=== PATIENT | female | born 1970 | race Caucasian/White ===

== ENCOUNTER → 2017-03-23 08:48 | Outpatient (CLI) | payer BC, SELFPAY ==
--- NOTE | 2017-03-23 08:51 | HPBI_ITS ---
MAMMOGRAPHY - BILATERAL SCREENING REASON FOR EXAM: Female, 46 years old. Routine annual screening examination. PERTINENT HISTORY: Non-contributory. TECHNIQUE: Digital bilateral breast sandro (3D mammographic acquisition) in the CC and MLO projections. 2-D mediolateral oblique (MLO) and craniocaudad (CC) views of both breasts were obtained. CAD: Full Field Digital Mammography with Computer Added Detection was performed. COMPARISON: Comparison is made with prior outside examination dated April 13, 2014. FINDINGS: Breast Composition: There are scattered areas of fibroglandular density. There are no dominant masses or suspicious calcifications. Stable well-defined 1.3 cm nodular density in the axillary region of the right breast. This most likely represents a small lymph node. No other significant abnormalities are identified. There has been no significant change since the prior study. HPBI/SCREENING MAMM (CAD), BILAT IMPRESSION: Stable bilateral screening mammogram. Yearly follow-up mammogram recommended. (A) ASSESSMENT CATEGORY: BIRADS Category 2: Benign. A letter regarding these results will be sent to the patient by the facility within 30 days. Approximately 10% of breast cancers are not detected by mammography. A normal mammogram should not delay biopsy of a clinically suspicious abnormality. [id number] Electronically Signed: Cleveland Cruz MD at 11:19 EST Tel [phone], Service support ,
== END ==
PROVIDERS: Family Provider Family Medicine; PCP Family Medicine; Visit Provider Obstetrics & Gynecology
DX: Z12.31 Encounter for screening mammogram for malignant neoplasm of breast (principal)
CPT/HCPCS: 77063; 77067

== ENCOUNTER → 2019-03-20 | Outpatient (CLI) | payer BC, SELFPAY ==
--- NOTE | 2019-03-20 08:21 | BI_ITS ---
MAMMOGRAPHY - BILATERAL SCREENING REASON FOR EXAM: Female, 48 years old. Routine annual screening examination. PERTINENT HISTORY: Non-contributory. TECHNIQUE: Digital bilateral breast patric (3D mammographic acquisition) in the CC and MLO projections. 2-D mediolateral oblique (MLO) and craniocaudad (CC) views of both breasts were obtained. CAD: Full Field Digital Mammography with Computer Added Detection was performed. COMPARISON: Comparison is made with prior examination dated March 23, 2017. FINDINGS: Breast Composition: There are scattered areas of fibroglandular density. There are no dominant masses or suspicious calcifications. Stable well-defined 1.3 cm nodular density in the axillary region of the right breast. This most likely represents a small benign-appearing lymph node. No other significant abnormalities are identified. There has been no significant change since the prior study. BI/SCREEN MAMM (CAD) W/PATRIC BILAT IMPRESSION: Stable bilateral screening mammogram. Yearly follow-up mammogram recommended. (A) ASSESSMENT CATEGORY: BIRADS Category 2: Benign. A letter regarding these results will be sent to the patient by the facility within 30 days. Approximately 10% of breast cancers are not detected by mammography. A normal mammogram should not delay biopsy of a clinically suspicious abnormality. [id number] Electronically Signed: Cleveland Cruz, at 14:47 EST , Service support ,
== END | disposition home or self-care (01) ==
LOC: OPBI 08:21
PROVIDERS: PCP Family Medicine; Referring Provider Obstetrics & Gynecology; Visit Provider Obstetrics & Gynecology
DX: Z12.31 Encounter for screening mammogram for malignant neoplasm of breast (principal)
CPT/HCPCS: 77063; 77067

== ENCOUNTER → 2020-04-02 14:45 | Outpatient (CLI) | payer BC, SELFPAY ==
[2019-07-27 08:29] VITALS: BMI 34.2
[2020-04-02 15:03] LABS: Absolute Lymphocyte Count 2.14 X10^3/uL (0.83-4.51); Absolute Neutrophil Count 3.5 X10^3/uL (2.0-7.7); Basophil# 0.05 X10^3/uL; Basophil% 0.8 % (0-1); Eosinophil# 0.13 X10^3/uL; Eosinophils% 2.1 % (0-5); Hematocrit 39.8 % (37-47); Hemoglobin 12.6 g/dL (12.0-15.0); Lymphocyte # 2.14 X10^3/ul (4.0); Lymphocyte % 34.2 % (19-41); Mean Corp Hgb Conc 31.7 g/dL (32-36); Mean Corpuscular Hgb 27.3 pg (27.0-32.0); Mean Corpuscular Volume 86.3 fL (81-99); Mean Platelet Vol. 11.6 fl (6.2-12.0); Monocyte# 0.43 X10^3/uL; Monocyte% 6.9 % (0-10); NRBC Flagged by Analyzer 0 % (0-5); Neutrophil # 3.48 X10^3/uL (2.7-7.7); Neutrophil % 55.7 % (47-70); Platelet Count 256 K/mm3 (150-450); RBC Distribution Width CV 13.2 % (11.6-14.6); RBC Distribution Width SD 41.6 fl (35.1-43.9); Red Blood Count 4.61 M/mm3 (4.2-5.4); White Blood Count 6.3 K/mm3 (4.4-11.0)
[2020-04-02 15:26] LABS: Thyroid Stim Hormone (TSH) 1.53 uIU/mL (0.358-3.74)
== END ==
PROVIDERS: PCP Family Medicine; Referring Provider Obstetrics & Gynecology; Visit Provider Obstetrics & Gynecology
DX: N92.0 Excessive and frequent menstruation with regular cycle (principal)
CPT/HCPCS: 36415; 84443; 85025

== ENCOUNTER → 2020-04-05 14:32 | Outpatient (CLI) | payer BC, SELFPAY ==
[2019-07-27 08:29] VITALS: BMI 34.2
--- NOTE | 2020-04-05 14:44 | US_ITS ---
STUDY: ULTRASOUND OF THE FEMALE PELVIS - COMPLETE REASON FOR EXAM: Female, 49 years old. menorrhagia LMP: TECHNIQUE: Transabdominal and Transvaginal TECHNICAL QUALITY: Adequate. COMPARISON: None. FINDINGS: The uterus is retroflexed and is in a midline position. The uterus measures 7.4 x 4.8 x 6.9 cm. Normal uterine cervix. The endometrium measures 9 mm in thickness, and is hyperechoic. There is no demonstrated endometrial mass. There is no demonstrated myometrial mass. I.U.D. - The patient does not have an I.U.D. The right ovary is visualized. The right ovary measures 3.6 x 3.2 x 2.5 cm. 3.4 cm corpus luteum cyst of the right ovary. There is no visualized right adnexal mass or complex lesion. There is normal arterial and normal venous vascularity. The left ovary is visualized. The left ovary measures 3.5 x 1.7 x 1.6 cm. There is no left ovarian cyst or ovarian mass. There is no visualized left adnexal mass or complex lesion. There is normal arterial and normal venous vascularity. There is no fluid in the cul-de-sac. The pre void volume of the bladder was ml. The post void volume of the bladder was ml. Polycystic ovary disease: No. US/Pelvic (Non ) IMPRESSION: 3.4 cm corpus luteum cyst of the right ovary. Electronically Signed: Barrington Dee MD at 8:42 EST Tel , Service support ,
--- NOTE | 2020-04-05 14:44 | US_ITS ---
STUDY: ULTRASOUND OF THE FEMALE PELVIS - COMPLETE REASON FOR EXAM: Female, 49 years old. menorrhagia LMP: TECHNIQUE: Transabdominal and Transvaginal TECHNICAL QUALITY: Adequate. COMPARISON: None. FINDINGS: The uterus is retroflexed and is in a midline position. The uterus measures 7.4 x 4.8 x 6.9 cm. Normal uterine cervix. The endometrium measures 9 mm in thickness, and is hyperechoic. There is no demonstrated endometrial mass. There is no demonstrated myometrial mass. I.U.D. - The patient does not have an I.U.D. The right ovary is visualized. The right ovary measures 3.6 x 3.2 x 2.5 cm. 3.4 cm corpus luteum cyst of the right ovary. There is no visualized right adnexal mass or complex lesion. There is normal arterial and normal venous vascularity. The left ovary is visualized. The left ovary measures 3.5 x 1.7 x 1.6 cm. There is no left ovarian cyst or ovarian mass. There is no visualized left adnexal mass or complex lesion. There is normal arterial and normal venous vascularity. There is no fluid in the cul-de-sac. The pre void volume of the bladder was ml. The post void volume of the bladder was ml. Polycystic ovary disease: No. US/Transvaginal Non- IMPRESSION: 3.4 cm corpus luteum cyst of the right ovary. Electronically Signed: Barrington Dee MD at 8:42 EST Tel , Service support ,
== END ==
PROVIDERS: PCP Family Medicine; Referring Provider Obstetrics & Gynecology; Visit Provider Obstetrics & Gynecology
DX: N92.0 Excessive and frequent menstruation with regular cycle (principal)
CPT/HCPCS: 76830; 76856

== ENCOUNTER 2020-05-14 05:55 | Day surgery (SDC) | payer BC, SELFPAY ==
[2020-04-11 11:46] VITALS: BMI 35.9
[2020-05-01 15:04] VITALS: BMI 36.3
--- NOTE | 2020-05-13 10:40 | EKG12_ITS ---
Test Reason : PRE OP Blood Pressure : / mmHG Vent. Rate : 069 BPM Atrial Rate : 069 BPM P-R Int : 156 ms QRS Dur : 082 ms QT Int : 336 ms P-R-T Axes : 039 027 026 degrees QTc Int : 360 ms Normal sinus rhythm Normal ECG Confirmed by NELLY HOLGUIN MD ([id number]), movie editor GERTRUDE ARRIAZA ([id number]) on 05/15/2020 7:36:33 AM Referred By: Yumiko Funk Confirmed By:NELLY HOLGUIN MD
[2020-05-13 11:38] LABS: Hematocrit 41.1 % (37-47); Hemoglobin 12.7 g/dL (12.0-15.0); Mean Corp Hgb Conc 30.9 g/dL (32-36); Mean Corpuscular Hgb 26.6 pg (27.0-32.0); Mean Platelet Vol. 12.5 fl (6.2-12.0); Platelet Count 259 K/mm3 (150-450); RBC Distribution Width CV 14.1 % (11.6-14.6); RBC Distribution Width SD 44.8 fl (35.1-43.9); Red Blood Count 4.78 M/mm3 (4.2-5.4); White Blood Count 4.2 K/mm3 (4.4-11.0)
[2020-05-14] VITALS (7 sets, daily range): BP systolic 119–142; BP diastolic 75–84; PULSE 69–84; RESP 16; TEMP 36.6–36.8; O2SAT 78–98; BMI 35.6
--- NOTE | 2020-05-14 | UTC_PTH ---
PATIENT: SHAYNA SYLVESTER LOC: [facility] U#:[id number] AGE/SX: 50/F ROOM: RE05/14/[address]: Dr. Yumiko Funk MD : 1970 BED: DIS: 05/14/2020 SPEC #: [id number] RECD: 05/14/20 08:00 STATUS: NURIS REOtoniel #: [id number] PAZ: 05/14/20 00:[address]: Yumiko Funk DEPT: SURGICAL PATHOLOGY RECD BY: Daly Diaz ENTERED: 05/14/20 08:37 SP TYPE: WA CUR OTHR DR: Dr. Charanjit Gonzalez, DO Tissues: A - Uterine cervix, NOS B - Uterine cervix, NOS Procedures: Frozen Section (charge) Frozen Section Add'l ([facility]) Surgery Specimen Level IV HEADER OPERATION: Hysteroscopy, D & C, operative resection polypectomy, Symphion PRE-OP DIAGNOSIS: Menorrhagia with regular cycle TISSUE SUBMITTED: A - Uterine curettings, FS at 0742, B - Uterine curettings FROZEN SECTION DIAGNOSIS A. Uterine curettings: Consistent with exogenous hormone effects. No evidence of endometrial hyperplasia. SJ:carlin 05/14/2020 MICROSCOPIC DIAGNOSIS A. Uterine curettings: Consistent with exogenous hormone effect with focal minimal area of secretory endometrium. Fragments of benign ecto- and endocervical mucosa with chronic inflammation. No evidence of endometrial hyperplasia. B. Uterine curettings: Consistent with exogenous hormone effect with focal minimal area of secretory endometrium. Fragments of myometrium with focal adenomyosis. Negative for endometrial hyperplasia. JITENDRA:carlin 05/15/2020 COMMENT Case has been reviewed in consultation with Dr. Carlisle who concurs with the above diagnosis. IDC:AM MICROSCOPIC DESCRIPTION Slides are reviewed. GROSS DESCRIPTION A - Received fresh for frozen section diagnosis labeled with the patient's name is a specimen designated uterine curettings. The specimen consists of multiple fragments of hemorrhagic soft tissue mixed with blood clots. The hemorrhagic soft tissue measures 6 x 2 x 1 cm and blood clot measures 4 x 3 x 1 cm. The hemorrhagic soft tissue is submitted for frozen section diagnosis in two cassettes. The rest of the specimen is submitted in two more cassettes. / JITENDRA:carlin 05/14/20 B - Received in fixative is one container labeled with the patient's name and designated uterine curettings. The specimen consists of multiple irregular fragments of villeda soft tissue mixed with a few fragments of blood clot that in aggregate measure 7.5 x 3 x 1 cm. The entire specimen is submitted in nine cassettes. Cassette 9 contains the blood clots. / JITENDRA:carlin 05/14/20 TC:5 CPT: 20766 x2, 13991, 77515
[2020-05-14] MEDS: Lactated Ringers 1,000 ML 125 ML IV (06:37)
[2020-05-14 06:41] LABS: Internal QC Validated? YES +Cl - CLEAR BKGD; Pregnancy, Urine Negative Negative
[2020-05-14] MEDS: Lidocaine 1% (20 ml mdv) 20 ML Vial (07:42)
[2020-05-14] MEDS: FERRIC SUBSULFATE 8 GM SOLN (08:23)
--- NOTE | 2020-05-14 08:32 | HP.PCM_ITS ---
- Problem List (1) Menorrhagia with regular cycle Status: Acute Comment: discussed medical vs surgical mangement, failed aygestin. plan margaret ablation. 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 Yumiko Funk MD) adopted: No household members: family housing: house number of children: 4 current occupational status: employed pets and animals: Yes Smoking Status: Never smoker second hand exposure: No alcohol intake: never substance use type: does not use seatbelt use: always do you feel safe at home: Yes additional social history: - Khanh COLUNGA preop D&C Margaret Ablation: Details: SHAYNA SYLVESTER is a 49 year old who presents for preop visit prior to her surgery. she is having a d and c hysterosocpy ablation Pregancy History 4 Elective abortions Hx Para 4 Spontaneous abortions Hx # Term Pregnancies Ectopic pregnancies Hx # Pregnancies Multiple births # of living children 4 Past Pregnancies Del. Date Name GA/Weeks Outcome Route Bth Weight Gen Labor Lgth Anesthesia Del Locatn Provider FOB Unknown 1997- Efren Unknown 1999-- Zack Unknown 2002- Rajeev Unknown 2006- Corina ROS Const Constitutional: Denies fatigue, fever(s), headache(s), increased appetite, poor appetite, weight gain or weight loss Cardio Card: Denies chest pain Resp Resp: Denies cough or dyspnea GI GI: Reports as per HPI; denies abdominal pain, constipation, nausea or vomiting : Reports as per HPI; denies difficulty urinating, painful urination, nipple discharge, urinary frequency, urinary incontinence, urinary hesitancy, urinary urgency, vaginal discharge, vaginal dryness, vaginal odor or vaginal itching Skin Skin/Breast: Denies change in hair, breast lump, breast pain, breast skin changes or nipple discharge Exam Const General: cooperative, healthy appearing, comfortable, no acute distress, well developed Nutritional Appearance: average body habitus Orientation: alert HENMT Head: normal to inspection, normocephalic Neck Neck: normal visual inspection, trachea midline Thyroid: thyroid normal Resp Effort & Inspection: normal respiratory effort GI Inspection: normal to inspection, non-distended Palpation: soft, no hepatosplenomegaly General: bladder normal to palpation External Female Exam: normal external appearance, normal appearance of the urethra Urethra: normal appearance of the urethra, normal palpation, no discharge Speculum Exam - Vagina: normal appearance of the vagina, normal vaginal discharge Speculum Exam - Cervix: normal appearance of the cervix, nontender Bimanual Exam- Vagina & Uterus: normal bimanual exam, uterine size normal, bladder normal to palpation, uterine shape normal, No cervical tenderness, uterine mobility normal, uterine consistency normal, normal cervical palpation, uterus non-tender Bimanual Exam- Adnexa, other: normal adnexae, adnexae mobile, no adnexal masses, pelvic support normal Pelvic Support: normal Skin General: no rashes or lesions noted Assessment & Plan Problems 1. Menorrhagia with regular cycle N92.0 discussed medical vs surgical mangement, failed aygestin. plan margaret ablation. Plan After discussing the patient's diagnosis and treatment plan options, patient wishes to proceed with surgical management. I have discussed with the patient the risks, benefits, and alternatives of the procedure which include but are not limited to risks of anesthesia, bleeding, infection, possible damage to bowel, bladder, or surrounding vasculature which could lead to additional surgery to evaluate any complications. Patient agrees to procedure and wishes to proceed. ACOG/uptodate references given for additional information regarding procedure. Coding Level of Care Code No Charge Diagnoses Menorrhagia with regular cycle N92.0 UPDATE- I have seen the patient and performed any clinically relevant updates to the history and physical exam. Yumiko Funk MD
--- NOTE | 2020-05-14 08:32 | PCM.OPRPT ---
Problem List (1) Menorrhagia with regular cycle Status: Acute Comment: discussed medical vs surgical mangement, failed aygestin. plan diane ablation. (2) Mixed incontinence Status: Acute Comment: july consult, possible combo case Report of Operation Date of Procedure: 05/14/20 Pre-Operative Diagnosis: AUB Post-Operative Diagnosis: same Surgery/Procedure Performed:: d and c hysteroscopy symphion resection and minveran ablation Description of Surgical Findings:: thickened polypoid lining with multiple polyps and posisble degenerating fibroids Type of Anesthesia:: MAC/Supplemental/Local Special Medications: none Specimen's removed: emc Drains: garcia Estimated Blood Loss (mL): 50 Fluids Replaced: crystalloid Description of Procedure: Patient was prepped and draped in a normal sterile fashion under MAC anesthesia. A weighted speculum was placed in the vagina and the anterior lip of the cervix was grasped with a single-tooth tenaculum. A paracervical block was placed with 1% lidocaine. Cervix was progressively dilated to allow passage of a 5 mm hysteroscope. The lining was fully visualized and noted to have an irregular and thickened polypoid lining that had multiple calcifications and therefore the symphion device was utilized to provide direct resection of all the tissue and a frozen section was sent for evaluation which showed no hyperplasia or cancerous abnormalities.. Uterine sounded to 9 cm. Using the symphion device, the thickened lining and polyps and possible fibroids were progressively removed without complications. Direct visual curettage was performed using the device , and all specimens were sent to pathology. Since the pathology was within normal limits the decision to proceed with the Diane ablation since the cavity lining had been normalized structurally the ablation and passed the cavity integrity test and complete 2-minute burn was completed without complication. All instruments were removed from the vagina and excellent hemostasis was noted. Patient was awoken and taken to recovery in stable condition. Grafts/Implants Used: none - Complications none - Admit VTE Documentation VTE Present on Admission: No VTE Mechan Device Prophylaxis: SCD's Multi Select Codes - Urinary/Genital Urinary/Genital CPT Codes: 23619 Diane/Novasure, 46234 Hysteroscopy,EMC, Polypectomy
--- NOTE | 2020-05-14 08:33 | DCINST_ITS ---
Discharge Diet: No Restrictions Discharge Activity: Return to Normal Activity, May Shower, May Take a Tub Bath Allergies/Adverse Reactions: Allergies No Known Allergies Allergy (Verified 05/08/20 10:42) Medications to take at Discharge norethindrone acetate 5 mg tablet 5 mg PO .COMPLEX #45 tablet 04/23/20 Naproxen [Naprosyn] 250 - 500 mg PO Q8H PRN PRN #30 tab 05/14/20 The following prescriptions were given: Naproxen [Naprosyn] 250 - 500 mg PO Q8H PRN PRN #30 tab PRN Reason: MILD PAIN Transmission Status: Pending to [facility] Orders to be completed after discharge: 12 Lead EKG [[facility]] Time Frame: 1 Week, Location: None Selected Primary Care Physician: Charanjit Gonzalez DO [Primary Care Provider] - Test Results: Test results from this visit will be discussed in further detail at your follow- up appointment, if applicable. Please Follow Up With: Yumiko Funk MD - [phone]
== END 2020-05-14 10:01 | disposition home or self-care (01) ==
LOC: SDC 05:56 → AC 05:56
PROVIDERS: Anesthesiology; PCP Family Medicine; Referring Provider Obstetrics & Gynecology; Visit Provider Obstetrics & Gynecology
PROC: 0U5B8ZZ Destruction of Endometrium, Via Natural or Artificial Opening Endoscopic (ICD-10-PCS; CPT 58558; principal; 2020-05-14 07:15)
DX: N92.0 Excessive and frequent menstruation with regular cycle (principal); N39.46 Mixed incontinence; Z20.822 Contact with and (suspected) exposure to COVID-19
CPT/HCPCS: 00952; 58563; 36415; 81025; 85027; 86850; 86900; 86901; 87426; 88305; 88331; 88332; 93005; C9803; J7120

== ENCOUNTER 2021-02-18 13:57 | Outpatient (CLI) | payer BC, SELFPAY ==
[2021-02-18 15:09] LABS: Absolute Lymphocyte Count 1.85 X10^3/uL (0.83-4.51); Absolute Neutrophil Count 3.4 X10^3/uL (2.0-7.7); Basophil# 0.03 X10^3/uL; Basophil% 0.5 % (0-1); Eosinophil# 0.14 X10^3/uL; Eosinophils% 2.4 % (0-5); Hematocrit 42.6 % (37-47); Hemoglobin 13.9 g/dL (12.0-15.0); Lymphocyte # 1.85 X10^3/ul (0.83-4.51); Lymphocyte % 31.2 % (19-41); Mean Corp Hgb Conc 32.6 g/dL (32-36); Mean Corpuscular Hgb 30.3 pg (27.0-32.0); Mean Platelet Vol. 11.9 fl (6.2-12.0); Monocyte% 8.4 % (0-10); NRBC Flagged by Analyzer 0 % (0-5); Neutrophil # 3.39 X10^3/uL (2.7-7.7); Neutrophil % 57.2 % (47-70); Platelet Count 223 K/mm3 (150-450); RBC Distribution Width CV 13.2 % (11.6-14.6); RBC Distribution Width SD 44.8 fl (35.1-43.9); Red Blood Count 4.58 M/mm3 (4.2-5.4); White Blood Count 5.9 K/mm3 (4.4-11.0)
[2021-02-18 15:27] LABS: ALB/GLOB Ratio 0.8 RATIO (0.9-2.4); AST(SGOT) 20 U/L (15-37); Alanine Aminotransfer ALT/SGPT 31 U/L (13-56); Albumin, Serum 3.5 g/dL (3.2-5.0); Alkaline Phosphatase 62 U/L (45-117); Anion Gap 9 (5-15); BUN 14 mg/dL (7-18); BUN/Creat Ratio 18.1 RATIO (10-20); Calcium,Total 9.1 mg/dL (8.5-10.1); Chloride 102 mmol/L (98-107); Cholesterol 245 mg/dL (200); Creatinine, Serum 0.77 mg/dL (0.55-1.02); EST Glomerular Filtration Rate 84 mL/min (>60); Est Glom Filt Rate - Afr Amer 102 mL/min (>60); Globulin 4.2 g/dL (2.2-4.2); Glucose 108 mg/dL (74-106); High Density Lipoprotein 54 mg/dL; Potassium 3.6 mmol/L (3.5-5.1); Protein, Total 7.7 g/dL (6.4-8.2); Sodium Level 139 mmol/L (136-145); Triglycerides 313 mg/dL; Very Low Density Lipoprotein 63 mg/dL (5-40)
== END 2021-02-18 23:59 | disposition short-term general hospital (02) ==
LOC: BIMLAB 13:58
PROVIDERS: PCP Family Medicine; Visit Provider Family Medicine
DX: I10 Essential (primary) hypertension (principal); Z80.0 Family history of malignant neoplasm of digestive organs
CPT/HCPCS: 36415; 80053; 80061; 85025

== ENCOUNTER 2021-04-08 13:20 | Outpatient (CLI) | payer BC, SELFPAY ==
[2021-04-11 18:55] LABS: HPV APTIMA, High Risk Negative (Negative)
== END 2021-04-08 23:59 | disposition home or self-care (01) ==
LOC: LABSPEC 04-23 13:20
PROVIDERS: PCP Family Medicine; Visit Provider Nurse Practitioner Women's Health
DX: Z12.4 Encounter for screening for malignant neoplasm of cervix (principal)
CPT/HCPCS: 87624; 88175; G0145

== ENCOUNTER 2021-05-14 07:39 | Outpatient (CLI) | payer BC, SELFPAY ==
--- NOTE | 2021-05-14 07:41 | BI_ITS ---
MAMMOGRAPHY - BILATERAL SCREENING REASON FOR EXAM: Female, 51 years old. Routine annual screening examination. PERTINENT HISTORY: Non-contributory. TECHNIQUE: Digital bilateral breast patric (3D mammographic acquisition) in the CC and MLO projections. 2-D mediolateral oblique (MLO) and craniocaudad (CC) views of both breasts were obtained. CAD: Full Field Digital Mammography with Computer Added Detection was performed. COMPARISON: Comparison is made with prior study dated 03/20/2019 and 03/23/2017. FINDINGS: Breast Composition: There are scattered areas of fibroglandular density. There are no dominant masses or suspicious calcifications. Stable benign-appearing bilateral axillary lymph nodes. No other significant abnormalities are identified. There has been no significant change since the prior study. BI/SCRN MAMM (CAD)W/PATRIC BILAT IMPRESSION: Stable bilateral screening mammogram. Yearly follow-up mammogram recommended. (A) ASSESSMENT CATEGORY: BIRADS Category 2: Benign. A letter regarding these results will be sent to the patient by the facility within 30 days. Approximately 10% of breast cancers are not detected by mammography. A normal mammogram should not delay biopsy of a clinically suspicious abnormality. [id number] Electronically Signed: Cleveland Cruz MD at 8:33 EDT ,
== END 2021-05-14 23:59 | disposition home or self-care (01) ==
LOC: OPBI 07:40
PROVIDERS: PCP Family Medicine; Visit Provider Nurse Practitioner Women's Health
DX: Z12.31 Encounter for screening mammogram for malignant neoplasm of breast (principal)
CPT/HCPCS: 77063; 77067

== ENCOUNTER 2021-06-17 10:50 | Day surgery (SDC) | payer BC, SELFPAY ==
[2021-06-17] VITALS (7 sets, daily range): BP systolic 80–119; BP diastolic 39–82; PULSE 61–72; RESP 16; TEMP 36.1–37.1; O2SAT 98–100; BMI 33.3
[2021-06-17] MEDS: Lactated Ringers 1,000 ML 15 ML IV (11:24)
--- NOTE | 2021-06-17 12:00 | COLBX_PTH ---
PATIENT: SHAYNA SYLVESTER LOC: [facility] U#:[id number] AGE/SX: 51/F ROOM: RE06/17/[address]: Dr. Bony Parker DO : 1970 BED: DIS: 06/17/2021 SPEC #: [id number] RECD: 06/17/21 16:21 STATUS: NURIS REOtoniel #: [id number] PAZ: 06/17/21 12:[address]: Bony Parker DEPT: SURGICAL PATHOLOGY RECD BY: José Miguel Clemens ENTERED: 06/18/21 09:40 SP TYPE: COLON BX OTHR DR: Dr. Charanjit Gonzalez DO Tissues: Rectum, NOS Procedures: Surgery Specimen Level IV HEADER OPERATION: Colonoscopy ? open access (MAC) PRE-OP DIAGNOSIS: Screening TISSUE SUBMITTED: Rectum biopsy MICROSCOPIC DIAGNOSIS Rectum, biopsy: No pathologic change. AM:carlin 06/19/2021 MICROSCOPIC DESCRIPTION Slides are reviewed. GROSS DESCRIPTION Received in fixative is one container labeled with the patient's name and designated rectum biopsy. The specimen consists of two irregular fragments of light villeda soft tissue that in aggregate measure 0.6 x 0.3 x 0.1 cm. The specimen is totally submitted in one cassette. / SJ:rg 06/18/2021 TC:5 CPT: 85614
--- NOTE | 2021-06-17 12:10 | HP.PCM_ITS ---
History and Physical Date of Admission: 06/17/21 [facility] HPI Details: SHAYNA SYLVESTER, is a 51F arrives here for screening colonoscopy. She has never had a colonoscopy. She has no family history colon cancer or colon polyps. She denies any problems with her bowels. She is not have any chest pain or shortness of breath. She has no bleeding per rectum. She has no diarrhea or constipation. Overall she is doing very well. Past medical history-hypertension, urinary incontinence Past surgical history is negative No known drug allergies Social history negative alcohol and drugs ROS Const Constitutional: No body ache, chills, excessive sweating, fatigue, fever(s), headache(s), snoring, weakness, weight change, sleep problems, change in appetite or other Eyes Eyes: No blurry vision, change in vision, eye pain, Light sensitivity or other ENT ENT: No abnormal hearing, ear or mastoid pain, tinnitus, nasal congestion, headache(s), neck pain, sore throat or other Resp Respiratory: No cough, shortness of breath, snoring, wheezing or other Cardio Cardiology: No chest pain at rest, chest pain with exertion, excessive sweating, shortness of breath, lightheadedness, orthopnea, palpitations or other Gastro GI: No abdominal pain, change in bowel habits, constipation, cramping, diarrhea, nausea/dyspepsia, vomiting or other Genitourinary-Female: No burning urination, painful urination, urinary incontinence, urinary frequency, urinary urgency, abnormal vaginal bleeding, pelvic pain or other Musc Musculoskeletal: No abnormal gait, joint pain, back pain, limited range of motion, neck pain, numbness, tingling or other Skin Skin: No dry skin, redness, lesions, itchy eyes, rash, wounds or other Neuro Neurology: No abnormal gait, abnormal hearing, abnormal speech, dizziness, weakness, headache(s), memory loss, numbness, tingling or other Psych Psychiatric: No anxiety, No change in appetite, No depression, No memory loss, No Thoughts of harming yourself/Others and No other Endo Endocrine: No cold intolerance, excessive sweating, fatigue, flushing, heat intolerance, increased thirst/drinking, increased hunger, weight change or other Aller/Imm Allergy/Immunologic: No itchy eyes, seasonal allergy symptoms, hives, wheezing or other Eliseo/Lymp Hematologic/Lymphatic: No easy bleeding, easy bruising, enlarged lymph nodes or other Exam Const General: cooperative and healthy appearing Nutritional Appearance: overweight Orientation: oriented x3 HENMT Head: normal to inspection Ears: hearing grossly normal bilaterally and TM's normal bilaterally Nose: external nose normal Face and sinus: normal facial exam Mouth: oral mucosae normal Teeth and gingiva: dentition normal Eyes General: appearance normal, both eyes and all related structures Neck Neck: normal visual inspection Neck mass: No Thyroid: thyroid normal Resp Effort & Inspection: normal respiratory effort Auscultation: Bilateral: Clear to Auscultation Cardio Rate: regular rate Rhythm: regular rhythm Musc Musculoskeletal: No joint tenderness or decreased range of motion Skin General: no rashes or lesions noted Neuro General: patient alert Cranial Nerves: CN's II-XI intact bilaterally Speech: speech normal Gait: normal gait Extrem General: normal to inspection Psych Affect: normal affect Speech and Movement: speech and movement normal Attitude: cooperative Assessment and plan 51-year-old here for screening colonoscopy. She was explained alternatives, risk, benefits including not withstanding bleeding, infection, sepsis, perforation, need for emergent and . She will have an ASA of 1.
--- NOTE | 2021-06-17 12:41 | OP.COLON_ITS ---
Patient Name: Cortney Suarez Procedure Date: 06/17/2021 11:49 AM Date of : 1970 Age: 51 Procedure: Colonoscopy Indications: Screening for colorectal malignant neoplasm Providers: Bony Parker DO Referring MD: Bony Parker DO Medicines: Monitored Anesthesia Care Patient Profile: This is a 51 year old female. Refer to note in patient chart for documentation of history and physical. Last Colonoscopy: none. The patient's first colonoscopy is today. Complications: No immediate complications. Procedure: Pre-Anesthesia Assessment: - Prior to the procedure, a History and Physical was performed, and patient medications and allergies were reviewed. The risks and benefits of the procedure and the sedation options and risks were discussed with the patient. All questions were answered and informed consent was obtained. Patient identification and proposed procedure were verified by the physician in the pre-procedure area. Mental Status Examination: alert and oriented. Airway Examination: normal oropharyngeal airway and neck mobility. Respiratory Examination: clear to auscultation. CV Examination: normal. Prophylactic Antibiotics: The patient does not require prophylactic antibiotics. Prior Anticoagulants: The patient has taken no previous anticoagulant or antiplatelet agents. After reviewing the risks and benefits, the patient was deemed in satisfactory condition to undergo the procedure. The anesthesia plan was to use moderate sedation / analgesia (conscious sedation). Immediately prior to administration of medications, the patient was re-assessed for adequacy to receive sedatives. The heart rate, respiratory rate, oxygen saturations, blood pressure, adequacy of pulmonary ventilation, and response to care were monitored throughout the procedure. The physical status of the patient was re-assessed after the procedure. After I obtained informed consent, the scope was passed under direct vision. Throughout the procedure, the patient's blood pressure, pulse, and oxygen saturations were monitored continuously. The colonoscope was introduced through the anus and advanced to the cecum, identified by appendiceal orifice and ileocecal valve. The colonoscopy was performed without difficulty. The patient tolerated the procedure well. The quality of the bowel preparation was good. Scope In: 12:16:42 PM Scope Withdrawal Time 0 hours 13 minutes 25 seconds Scope Out: 12:34:49 PM Total Procedure Duration Time 0 hours 18 minutes 7 seconds Findings: Hemorrhoids were found on perianal exam. The recto-sigmoid colon, sigmoid colon, descending colon, splenic flexure, transverse colon, hepatic flexure, ascending colon, cecum, appendiceal orifice and ileocecal valve appeared normal. Patchy mild inflammation characterized by congestion (edema) was found in the rectum. Biopsies were taken with a cold forceps for histology. Verification of patient identification for the specimen was done. Estimated blood loss was minimal. Impression: - Hemorrhoids found on perianal exam. - The recto-sigmoid colon, sigmoid colon, descending colon, splenic flexure, transverse colon, hepatic flexure, ascending colon, cecum, appendiceal orifice and ileocecal valve are normal. - Patchy mild inflammation was found in the rectum secondary to colitis. Biopsied. Recommendation: - Discharge patient to home. - Resume previous diet. - Continue present medications. - Await pathology results. - Repeat colonoscopy in 10 years for screening purposes. Procedure Code(s): --- Professional --- 12908, Colonoscopy, flexible; with biopsy, single or multiple CPT copyright 2017 [employer]. All rights reserved. The codes documented in this report are preliminary and upon outside sales representative review may be revised to meet current compliance requirements. Bony Parker DO 06/17/2021 12:41:16 PM This report has been signed electronically. Number of Addenda: 1 Note Initiated On: 06/17/2021 11:49 AM Addendum Number: 1 Addendum Date: 11/07/2021 6:25:09 AM MAC was used as sedation for this procedure. Bony Parker DO 11/07/2021 6:25:13 AM This report has been signed electronically.
--- NOTE | 2021-06-17 12:42 | OP.CCLET_ITS ---
11/07/2021 Charanjit Gonzalez Re : Colonoscopy procedure for Cortney Suarez Dear Dr. Gonzalez This procedure was performed on Thursday, June 17, 2021. My impressions and recommendations are as follows: Impressions : - Hemorrhoids found on perianal exam. - The recto-sigmoid colon, sigmoid colon, descending colon, splenic flexure, transverse colon, hepatic flexure, ascending colon, cecum, appendiceal orifice and ileocecal valve are normal. - Patchy mild inflammation was found in the rectum secondary to colitis. Biopsied. Recommendations : - Discharge patient to home. - Resume previous diet. - Continue present medications. - Await pathology results. - Repeat colonoscopy in 10 years for screening purposes. My findings are described in the full procedure note, which is enclosed. If I can be of further assistance, please feel free to contact me at . Sincerely, Bony Parker, 06/17/2021 12:41:16 PM This report has been signed electronically.
== END 2021-06-17 13:17 | disposition home or self-care (01) ==
LOC: EN 10:53 → AC 10:54
PROVIDERS: PCP Family Medicine; Referring Provider Internal Medicine Gastroenterology; Visit Provider Internal Medicine Gastroenterology
PROC: 0DJD8ZZ Inspection of Lower Intestinal Tract, Via Natural or Artificial Opening Endoscopic (ICD-10-PCS; CPT 45378; principal; 2021-06-17 11:55)
DX: Z12.11 Encounter for screening for malignant neoplasm of colon (principal); K64.9 Unspecified hemorrhoids; K62.89 Other specified diseases of anus and rectum; I10 Essential (primary) hypertension; Z79.899 Other long term (current) drug therapy; Z86.16 Personal history of COVID-19
CPT/HCPCS: 45380; 87426; 88305; C9803; J7120; J2405

== ENCOUNTER → 2022-06-29 | Outpatient (CLI) | payer OTHER, SELFPAY ==
[2022-06-29 10:09] LABS: Absolute Lymphocyte Count 1.56 X10^3/uL (0.83-4.51); Absolute Neutrophil Count 2.4 X10^3/uL (2.0-7.7); Basophil# 0.03 X10^3/uL; Basophil% 0.7 % (0-1); Eosinophils% 2.2 % (0-5); Hematocrit 43.1 % (37-47); Hemoglobin 14.2 g/dL (12.0-15.0); Lymphocyte # 1.56 X10^3/ul (0.83-4.51); Lymphocyte % 34.4 % (19-41); Mean Corp Hgb Conc 32.9 g/dL (32-36); Mean Corpuscular Hgb 30.6 pg (27.0-32.0); Mean Corpuscular Volume 92.9 fL (81-99); Monocyte# 0.45 X10^3/uL; Monocyte% 9.9 % (0-10); NRBC Flagged by Analyzer 0 % (0-5); Neutrophil # 2.38 X10^3/uL (2.7-7.7); Neutrophil % 52.6 % (47-70); Platelet Count 197 K/mm3 (150-450); RBC Distribution Width CV 12.5 % (11.6-14.6); RBC Distribution Width SD 42.5 fl (35.1-43.9); Red Blood Count 4.64 M/mm3 (4.2-5.4); White Blood Count 4.5 K/mm3 (4.4-11.0)
[2022-06-29 10:33] LABS: Thyroid Stim Hormone (TSH) 1.05 uIU/mL (0.358-3.74)
== END | disposition home or self-care (01) ==
PROVIDERS: PCP Family Medicine; Referring Provider Obstetrics & Gynecology; Visit Provider Obstetrics & Gynecology
DX: N92.0 Excessive and frequent menstruation with regular cycle (principal)
CPT/HCPCS: 36415; 84443; 85025

== ENCOUNTER → 2022-07-16 | Outpatient (CLI) | payer OTHER, SELFPAY ==
[2022-07-16 12:46] LABS: BUN 13 mg/dL (7-18); Creatinine, Serum 0.73 mg/dL (0.55-1.02); Glucose 94 mg/dL (74-106)
[2022-07-16 12:47] LABS: AST(SGOT) 16 U/L (15-37); Alanine Aminotransfer ALT/SGPT 24 U/L (13-56); Albumin, Serum 3.7 g/dL (3.2-5.0); Alkaline Phosphatase 73 U/L (45-117); Anion Gap 7 (5-15); BUN/Creat Ratio 17.7 RATIO (10-20); Calcium,Total 9.2 mg/dL (8.5-10.1); Chloride 110 mmol/L (98-107); EST Glomerular Filtration Rate 89 mL/min (>60); Est Glom Filt Rate - Afr Amer 108 mL/min (>60); Globulin 3.7 g/dL (2.2-4.2); Potassium 4.5 mmol/L (3.5-5.1); Protein, Total 7.4 g/dL (6.4-8.2); Sodium Level 140 mmol/L (136-145)
== END | disposition home or self-care (01) ==
LOC: BIMLAB 08:55
PROVIDERS: PCP Family Medicine; Visit Provider Family Medicine
DX: I10 Essential (primary) hypertension (principal)
CPT/HCPCS: 36415; 80053

== ENCOUNTER → 2022-10-21 | Outpatient (CLI) | payer OTHER, SELFPAY ==
[2022-10-21 17:37] LABS: Mucous, Urine 0 SEEN /hpf (<or=2+)
[2022-10-21 17:59] LABS: Color, Urine Yellow (Yellow); Glucose, Dipstick Normal (Normal); Ketone-Dipstick Negative (Negative); Leukocyte Esterase-Dipstick 500 /ul (Negative); Nitrite-Dipstick Positive (Negative); Occult Blood-Urine 50 /ul (Negative); Protein-Dipstick 30 mg/dl (Negative); Specific Gravity, Urine 1.025 (1.002-1.030); Urine Bilirubin Dipstick Negative (Negative); Urine Clarity Sl. Cloudy (Clear); Urine Urobilinogen Normal (Normal)
[2022-10-21 18:07] LABS: Bacteria 1+ /hpf (None Seen); Squamous Epithelial Cells - UA 0-5 SEEN /hpf (5-10)
[2022-10-21 18:08] LABS: Red Blood Cells-Urine 0-5 SEEN /hpf (0-5); White Blood Cells 50-100 SEEN /hpf (0-5)
== END | disposition home or self-care (01) ==
PROVIDERS: PCP Family Medicine; Visit Provider Physician Assistant
DX: R30.0 Dysuria (principal)
CPT/HCPCS: 81001; 87077; 87086; 87088; 87186

== ENCOUNTER → 2022-12-29 | Outpatient (CLI) | payer OTHER, SELFPAY ==
[2022-12-29 08:23] LABS: Bacteria 0 SEEN /hpf (None Seen); Mucous, Urine 0 SEEN /hpf (<or=2+); Red Blood Cells-Urine 0 SEEN /hpf (0-5)
[2022-12-29 10:29] LABS: Color, Urine Yellow (Yellow); Glucose, Dipstick Normal (Normal); Ketone-Dipstick Negative (Negative); Leukocyte Esterase-Dipstick 500 /ul (Negative); Nitrite-Dipstick Negative (Negative); Occult Blood-Urine 150 /ul (Negative); Protein-Dipstick 100 mg/dl (Negative); Urine Bilirubin Dipstick Negative (Negative); Urine Clarity Cloudy (Clear); Urine Urobilinogen Normal (Normal)
[2022-12-29 10:36] LABS: Squamous Epithelial Cells - UA 0-5 SEEN /hpf (5-10); White Blood Cells >100 SEEN /hpf (0-5)
== END | disposition home or self-care (01) ==
PROVIDERS: PCP Family Medicine; Visit Provider Physician Assistant
DX: R30.0 Dysuria (principal)
CPT/HCPCS: 81001; 87086; 87088; 87186

== ENCOUNTER → 2023-01-20 | Outpatient (CLI) | payer OTHER, SELFPAY ==
--- NOTE | 2023-01-20 08:09 | BI_ITS ---
MAMMOGRAPHY - BILATERAL SCREENING REASON FOR EXAM: Female, 52 years old. Routine annual screening examination. PERTINENT HISTORY: Non-contributory. TECHNIQUE: Digital bilateral breast patric (3D mammographic acquisition) in the CC and MLO projections. 2-D mediolateral oblique (MLO) and craniocaudad (CC) views of both breasts were obtained. CAD: Full Field Digital Mammography with Computer Added Detection was performed. COMPARISON: Comparison is made with prior study dated May 14, 2021 and March 20, 2019. FINDINGS: Breast Composition: There are scattered areas of fibroglandular density. There are no dominant masses or suspicious calcifications. Stable fat-containing right axillary lymph nodes. No other significant abnormalities are identified. There has been no significant change since the prior study. BI/SCRN MAMM (CAD)W/PATIRC BILAT IMPRESSION: Stable bilateral screening mammogram. Yearly follow-up mammogram recommended. (A) ASSESSMENT CATEGORY: BIRADS Category 2: Benign. A letter regarding these results will be sent to the patient by the facility within 30 days. Approximately 10% of breast cancers are not detected by mammography. A normal mammogram should not delay biopsy of a clinically suspicious abnormality. [id number] Electronically Signed: Cleveland Cruz MD at 9:48 EST ,
== END | disposition home or self-care (01) ==
PROVIDERS: PCP Family Medicine
DX: Z12.31 Encounter for screening mammogram for malignant neoplasm of breast (principal)
CPT/HCPCS: 77063; 77067

== ENCOUNTER → 2023-01-25 | Outpatient (CLI) | payer OTHER, SELFPAY ==
[2023-01-25 10:54] LABS: Mucous, Urine 0 SEEN /hpf (<or=2+)
[2023-01-25 11:07] LABS: Color, Urine Yellow (Yellow); Glucose, Dipstick Normal (Normal); Ketone-Dipstick Negative (Negative); Leukocyte Esterase-Dipstick 500 /ul (Negative); Nitrite-Dipstick Positive (Negative); Occult Blood-Urine 50 /ul (Negative); Protein-Dipstick 30 mg/dl (Negative); Specific Gravity, Urine 1.025 (1.002-1.030); Urine Bilirubin Dipstick Negative (Negative); Urine Clarity Sl. Cloudy (Clear); Urine Urobilinogen Normal (Normal)
[2023-01-25 11:22] LABS: Red Blood Cells-Urine 0-5 SEEN /hpf (0-5); Squamous Epithelial Cells - UA 0-5 SEEN /hpf (5-10); White Blood Cells 25-50 SEEN /hpf (0-5)
[2023-01-25 11:23] LABS: Bacteria 2+ /hpf (None Seen)
== END | disposition home or self-care (01) ==
LOC: LABSPEC 10:49
PROVIDERS: PCP Family Medicine; Referring Provider Physician Assistant; Visit Provider Physician Assistant
DX: R30.0 Dysuria (principal)
CPT/HCPCS: 81001; 87086; 87088; 87186